=== PATIENT | male | born 1990 | race Caucasian/White ===

== ENCOUNTER 2020-03-08 21:00 | Inpatient (IN) | payer MEDICAID, OTHER ==
[~2020-03-08] VITALS: Ht 170.2 cm; Wt 74.4 kg
[2020-03-08 21:07] VITALS: BP 153/87
--- NOTE | 2020-03-08 21:14 | NUR ---
PT TAKEN TO BED 4
[2020-03-08] MEDS ORDERED: NACL 0.9% 500 ML IV ONE (21:22)
--- NOTE | 2020-03-08 21:23 | NUR ---
Dr. Cash examining patient.
[2020-03-08] MEDS ORDERED: KETOROLAC 30 MG/ML VIAL IVP ONE (21:25)
[2020-03-08] MEDS ORDERED: ONDANSETRON 4 MG/2 ML VIAL IVP ONE (21:25)
--- NOTE | 2020-03-08 21:31 | NUR ---
29 Y/O MALE C/O EPIGASTRIC PAIN X 1 WEEK. 8/10 PRESSURE LIKE PAIN. + VOMIT AND + DIARRHEA X 1 WEEK . ACTIVE BWOEL SOUNDS, SOFT, NON TNEDER. PMH: DENIES AX: PCN
[2020-03-08 21:41] LABS: BASOPHILS % (AUTO) 0.4 % (0.0-2.0); EOSINOPHILS # (AUTO) 0.3 K/uL (0-0.4); EOSINOPHILS % (AUTO) 2.5 % (0.0-4.0); HEMATOCRIT 48.1 % (36-52); HEMOGLOBIN 16.7 g/dL (12.0-18.0); LYMPHOCYTES # (AUTO) 1.9 K/uL (2.0-11.5); MEAN CORPUSCULAR HEMOGLOBIN 30 pg (27-31); MEAN CORPUSCULAR HGB CONC 35 g/dL (33-37); MONOCYTES # (AUTO) 1.4 K/uL (0.8-1.0); MONOCYTES % (AUTO) 12.6 % (1.7-9.3); NEUTROPHILS # (AUTO) 7.2 K/uL (1.8-7.7); NEUTROPHILS % (AUTO) 66.5 % (42.2-75.2); PLATELET COUNT (AUTO) 314 K/uL (140-450); RED BLOOD CELL COUNT(AUTO) 5.65 MIL/uL (4.20-6.10); RED CELL DISTRIBUTION WIDTH 13.1 % (11.6-13.7); WHITE BLOOD COUNT (AUTO) 10.9 K/uL (4.8-10.8)
--- NOTE | 2020-03-08 21:48 | NUR ---
PT TAKEN TO CT
[2020-03-08 21:54] LABS: ALBUMIN 4.1 g/dL (3.4-5.0); ANION GAP 13.2 (8-16); CARBON DIOXIDE 29.7 mmol/L (21-32); CREATININE 1.1 mg/dL (0.6-1.3); TOTAL BILIRUBIN 2.6 mg/dL (0.0-1.0)
[2020-03-08 22:01] LABS: POTASSIUM 2.9 mmol/L (3.5-5.1)
[2020-03-08] MEDS ORDERED: POTASSIUM CHL 40 MEQ/ D5-1/2NS 1,000 ML IV ONE (22:05)
[2020-03-08 22:11] LABS: APPEARANCE,URINE SL CLOUDY (CLEAR); BILIRUBIN,URINE 2+ (NEGATIVE); BLOOD, URINE NEGATIVE (NEGATIVE); COLOR,URINE ORANGE (YELLOW); LEUKOCYTE ESTERASE ,URINE NEGATIVE (NEGATIVE); NITRITE, URINE POSITIVE (NEGATIVE); PH,URINE 6.5 (5.0-9.0); UGLUCOSE NEGATIVE (NEGATIVE)
[2020-03-08 22:33] LABS: RBC,URINE 0-5 /HPF (0-5); WBC,URINE 0-5 /HPF (0-5)
[2020-03-08] MEDS ORDERED: ONDANSETRON 4 MG/2 ML VIAL IVP PRN (22:45)
[2020-03-08] MEDS ORDERED: ATRO1TAB PO (22:56)
[2020-03-08] MEDS ORDERED: PROM25TA27 PO (22:56)
[2020-03-08] MEDS ORDERED: METO5TAB4 PO (22:56)
[2020-03-08] MEDS ORDERED: NACL 0.9% 1,000 ML IV SCH (23:00)
[2020-03-08 23:10] VITALS: BP 135/76
--- NOTE | 2020-03-08 23:10 | NUR ---
RECEIVED PT AAOX4 FROM ER / COMPA , WALKS TO BED - STEADY GAIT , NID - O2 SAT WNL . IV SITE INTACT AND PATENT , W/ BEARABLE PAIN HESAID AT THIS TIME - TORADOL GIVEN AT ER PRIOR TO FLOOR . SAFETY MEASURES IN PLACE . ADM . ASSESSMENT DONE . MRAS SPECIMEN SENT TO LAB . PLAN OD CARE DISCUSSED AND VERBALIZE UNDERSTANDING . CALL LIGHT WITHIN REACH . WILL CONT. TO MONITOR . LOW SERUM K + - IVF W/ KCL - ON GOING RUN ORDERED .
--- NOTE | 2020-03-08 23:15 | NUR ---
Patient will be admitted to care of IRON JOE. Admited to TELE. Will go to room 112 B. Belongings list completed. Report to GEORGINA ERWIN.
[2020-03-09] VITALS: BP 125/67
--- NOTE | 2020-03-09 | NUR ---
MADE ROUNDS , RESTING ON BED COMFORTABLY , NO S/SX OF ACUTE DISTRESS NOTED AT THIS TIME . CALL LIGHT WITHIN REACH .
--- NOTE | 2020-03-09 02:00 | NUR ---
SLEEPING . CALL LIGHT WITHIN REACH .
[2020-03-09 04:00] VITALS: BP 110/60
--- NOTE | 2020-03-09 04:00 | NUR ---
MADE ROUNDS , NO S/SX OF ACUTE DISTRESS NOTED AT THIS TIME , NO COMPLAIN OF NAUSEA AND VOMITING , ABDL . PAIN AT THIS TIME . CALL LIGHT WITHIH REACH .
--- NOTE | 2020-03-09 06:00 | NUR ---
MADE ROUNDS , NO COMPLAIN MADE . LAST VOIDED 2144 AT THE ER - BP 120 /70 [facility] .
--- NOTE | 2020-03-09 07:20 | NUR ---
SHIFT REPORT RECEIVED FROM CONTROL CLERK FOOD AND BEVERAGE NURSE. PT IS WAKE AND AMBULATED TO REST ROOM. IN IN PLACE. NO DISTRESS. PT COMPLAINS OF ABDOMINAL PAIN. PAIN TOLERABLE. CALL LIGHT IN REACH. WILL CONTINUE TO MONITOR.
--- NOTE | 2020-03-09 07:20 | NUR ---
ENDORSED TO AM SHIFT - PT - STABLE .
[2020-03-09 08:00] VITALS: BP 140/84
[2020-03-09] MEDS ORDERED: POTASSIUM CHLORIDE 40 MEQ, LIDOCAINE MPF 1% 25 MG in NACL 0.9% 250 ML IV PRN (08:00)
[2020-03-09] MEDS ORDERED: DOCUSATE SODIUM 100 MG GELCAP PO PRN (08:00)
[2020-03-09] MEDS ORDERED: ONDANSETRON 4 MG/2 ML VIAL IM/IVP PRN (08:00)
[2020-03-09] MEDS ORDERED: ZOLPIDEM 5 MG TAB PO PRN (08:00)
[2020-03-09] MEDS ORDERED: ACETAMINOPHEN 325 MG TAB PO PRN (08:00)
[2020-03-09] MEDS ORDERED: guaiFENesin DM 200/20 MG-10 ML 10 ML UDC PO PRN (08:00)
[2020-03-09] MEDS: NACL 0.9% 1,000 ML IV SCH ×3 (08:00→22:38)
[2020-03-09] MEDS ORDERED: HYDROcodone/APAP 7.5/325 MG 1 TAB PO PRN (08:00)
[2020-03-09] MEDS: PANTOPRAZOLE 40 MG TABEC PO SCH ×2 (08:23→21:18)
[2020-03-09] MEDS: DICYCLOMINE 10 MG CAP PO SCH ×4 (08:24→21:18)
--- NOTE | 2020-03-09 09:17 | NUR ---
PATIENT HAS BEEN SCREENED AND CATEGORIZED HIGH NUTRITION RISK. PATIENT WILL BE SEEN WITHIN 1-2 DAYS OF ADMISSION. 03/09/20-03/10/[address]
--- NOTE | 2020-03-09 09:30 | NUR ---
PT GIVEN MORNING MEDS. ORAL PAIN MEDS GIVEN FOR ABD PAIN. NO COMPLAINS OF NAUSEA. IV IN PLACE. CALL LIGHT IN REACH. WILL CONTINUE TO MONITOR.
[2020-03-09 10:31] LABS: BASOPHILS % (AUTO) 0.2 % (0.0-2.0); EOSINOPHILS # (AUTO) 0.2 K/uL (0-0.4); EOSINOPHILS % (AUTO) 1.9 % (0.0-4.0); HEMATOCRIT 41.9 % (36-52); HEMOGLOBIN 14.3 g/dL (12.0-18.0); LYMPHOCYTES # (AUTO) 1.2 K/uL (2.0-11.5); LYMPHOCYTES % (AUTO) 11.7 % (20.5-51.1); MEAN CORPUSCULAR HEMOGLOBIN 29 pg (27-31); MEAN CORPUSCULAR HGB CONC 34 g/dL (33-37); MEAN CORPUSCULAR VOLUME 85.8 fL (80-94); MONOCYTES # (AUTO) 0.9 K/uL (0.8-1.0); MONOCYTES % (AUTO) 8.3 % (1.7-9.3); NEUTROPHILS # (AUTO) 8.1 K/uL (1.8-7.7); NEUTROPHILS % (AUTO) 77.9 % (42.2-75.2); PLATELET COUNT (AUTO) 246 K/uL (140-450); RED BLOOD CELL COUNT(AUTO) 4.88 MIL/uL (4.20-6.10); WHITE BLOOD COUNT (AUTO) 10.4 K/uL (4.8-10.8)
--- NOTE | 2020-03-09 10:42 | NUR ---
ACID WASHER OPERATOR NOTE: Patient's Orientation Person Situation Place Time Information Provided By PATIENT Comments SW CONTACTED PATIENT THROUGH ROOM PHONE. PATIENT PROVIDED PHONE NUMBER FOR EMERGENCY CONTACT WHEN SW VERIFIED DEMOGRAPHICS. Investigative Shopper, Realtionship and Phone Number MARCIAL SANCHEZ DAUGHTER [phone] [facility] Power of Hide Sorter No Does Patient Have a POLST No Identifying Problems No Social Work Triggers Is A Social Work Consult Needed No Mandate Report Filed No Explanation Of Identifying Problems PATIENT IS A 29-YEAR-OLD MALE ADMITTED FOR HYPOKALEMIA AND GASTROENTERITIS. PATIENT HAS NO PERTINENT PMHX. Admitted From Home Pre-Admission Level Of Functioning Status Independent/Ambulatory Prior Resources/Services Used In Last 12 Months No Prior Resources Used Prior DME No Prior DME Used Living Situation Lives With Family House Patient Had Caregiver No Home Support No Caregiver Issues Financial Issues No Known Financial Issue Referral To The Financial Counselor Needed No Factors/Needs No D/C Needs Identified Pt/Rep Participated In Discharge Plan Yes Patient/Family Agress With Discharge Plan Yes Discharge Plan Comments TENTATIVE DISCHARGE PLAN IS FOR PATIENT TO RETURN HOME. DC Plan Status Initiated
[2020-03-09 10:56] LABS: PROTHROMBIN TIME 11.4 secs (10.8-13.4)
[2020-03-09 10:59] LABS: ALBUMIN 3.4 g/dL (3.4-5.0); ANION GAP 9.8 (8-16); CARBON DIOXIDE 29.6 mmol/L (21-32); CREATININE 0.9 mg/dL (0.6-1.3); POTASSIUM 3.4 mmol/L (3.5-5.1); TOTAL BILIRUBIN 2.6 mg/dL (0.0-1.0)
[2020-03-09 11:10] LABS: CHOL/HDL RATIO 6.4 (1-4.5); FREE T4 (FREE THYROXINE) 1.86 ng/dL (0.76-1.46); MAGNESIUM 2.1 mg/dL (1.8-2.4); THYROID STIMULATING HORMONE 1.29 uIU/mL (0.34-3.74)
--- NOTE | 2020-03-09 11:30 | NUR ---
NO COMPLAINS OF ABDOMINAL PAIN. PT IS AWAKE AND RESPONSIVE. PT AMBULATED TO RESTROOM. WILL CONTINUE TO MONITOR.
[2020-03-09 12:00] VITALS: BP 122/62
--- NOTE | 2020-03-09 13:00 | NUR ---
PT HAD A BANANA FOR LUNCH. NO DISTRESS NOTED IV NS INFUSING. WILL CONTINUE TO MONITOR. CALL LIGHT IN REACH.
--- NOTE | 2020-03-09 14:16 | NUR ---
DC PLANNIN YRS OLD MALE PATIENT WAS ADMITTED FROM HOME WITH A DX OF HYPOKALEMIA, GASTROENTERITIS, INTRACTABLE VOMITING. PT HAS NO MEDICAL HISTORY. CXR SHOWED NO EVIDENCE OF ACUTE CARDIOPULMONARY DISEASE. CT ABD/PELVIS SHOWED NO BOWEL OBSTRUCTION. ADMINISTERED IVF AND PAIN MEDICATION. CONTINUE HOME MEDICATION. DC PLAN TO GO HOME WHEN STABLE. CM TO FOLLOW
--- NOTE | 2020-03-09 15:11 | NUR ---
PT IS AWAKE AND LYING IN BED. PT SAYS HE IS TIRED. NO DISTRESS OR SOB NOTED. NO COMPLAINS OF PAIN. WILL CONTINUE TO MONITOR.
--- NOTE | 2020-03-09 15:16 | NUR ---
03/09/20 RD INITIAL ASSESSMENT COMPLETED PLEASE REFER TO NUTRITION ASSESSMENT UNDER CARE ACTIVITY FOR ESTIMATED NUTRITIONAL NEEDS. 1. CONTINUE BRAT DIET TOLERATED 2. RECOMMEND ENSURE TID 3. ENCOURAGED INCREASING PO INTAKE 4. RD TO FOLLOW-UP 2-3 DAYS, HIGH RISK SD SUÁREZ, [facility]
[2020-03-09 16:00] VITALS: BP 122/63
--- NOTE | 2020-03-09 17:47 | NUR ---
PT IS AWAKE IN BED WATCHING TV. NO DISTRESS NO COMPLAINS OF PAIN. WILL CONTINUE TO MONITOR.
--- NOTE | 2020-03-09 19:13 | NUR ---
SHIFT REPORT GIVEN TO RETAIL TRAINING MANAGER NURSE. PT IS STABLE.
--- NOTE | 2020-03-09 19:14 | NUR ---
RECEIVED BEDSIDE ENDORSEMENT FROM RIP DAVIS. PATIENT IS LYING IN BED, AOX4, ON RA, RESPIRATION EVEN AND UNLABORED, DENIES PAIN, WITH IVF INFUSING AT HIS LAC 20 G, INTACT AND PATENT, AMBULATORY, PLAN OF CARE DISCUSSED, SAFETY MEASURES IN PLACE, CALL LIGHT WITHIN REACH.
[2020-03-09 20:00] VITALS: BP 130/63
[2020-03-09 20:45] LABS: BARBITURATE, URINE NEGATIVE ng/ml (NEG <=200); BENZODIAZEPINE, URINE NEGATIVE ng/mL (NEG <=200); CANNABINOID, URINE POSITIVE ng/mL (NEG <=50); COCAINE, URINE NEGATIVE ng/mL (NEG <=300); OPIATE, URINE NEGATIVE ng/mL (NEG <=2000); PHENCYCLIDINE SCREEN,URINE NEGATIVE ng/mL (NEG <=25)
--- NOTE | 2020-03-09 21:20 | NUR ---
DUE MEDS GIVEN ORDERED, TOLERATED WELL.
--- NOTE | 2020-03-09 22:38 | NUR ---
IVF FINISHED. HANGED A NEW BAG OF NS.
[2020-03-10] VITALS: BP 132/68
--- NOTE | 2020-03-10 01:00 | NUR ---
ASLEEP, RESPIRATION EVEN AND UNLABORED.
[2020-03-10 04:00] VITALS: BP 126/64
[2020-03-10] MEDS: NACL 0.9% 1,000 ML IV SCH (06:29)
--- NOTE | 2020-03-10 06:29 | NUR ---
PATIENT IS NOT IN ANY DISTRESS, DENIES PAIN. IVF FINISHED, CHANGED TO A NEW BAG OF NS 1 L AT 125 CC/HR.
[2020-03-10 06:41] LABS: BASOPHILS % (AUTO) 0.4 % (0.0-2.0); EOSINOPHILS # (AUTO) 0.2 K/uL (0-0.4); EOSINOPHILS % (AUTO) 2.9 % (0.0-4.0); HEMATOCRIT 41.2 % (36-52); HEMOGLOBIN 14.1 g/dL (12.0-18.0); LYMPHOCYTES # (AUTO) 1.3 K/uL (2.0-11.5); LYMPHOCYTES % (AUTO) 17.3 % (20.5-51.1); MEAN CORPUSCULAR HEMOGLOBIN 29 pg (27-31); MEAN CORPUSCULAR HGB CONC 34 g/dL (33-37); MEAN CORPUSCULAR VOLUME 85.8 fL (80-94); MONOCYTES # (AUTO) 0.8 K/uL (0.8-1.0); MONOCYTES % (AUTO) 10.5 % (1.7-9.3); NEUTROPHILS % (AUTO) 68.9 % (42.2-75.2); PLATELET COUNT (AUTO) 236 K/uL (140-450); RED CELL DISTRIBUTION WIDTH 12.7 % (11.6-13.7); WHITE BLOOD COUNT (AUTO) 7.3 K/uL (4.8-10.8)
[2020-03-10 06:44] LABS: ANION GAP 14.7 (8-16); CARBON DIOXIDE 23.1 mmol/L (21-32); CREATININE 0.8 mg/dL (0.6-1.3); POTASSIUM 3.8 mmol/L (3.5-5.1)
--- NOTE | 2020-03-10 07:10 | NUR ---
PATIENT IS IN STABLE CONDITION. BEDSIDE ENDORSEMENT GIVEN TO RIP BUTLER FOR CONTINUITY OF CARE.
--- NOTE | 2020-03-10 07:15 | NUR ---
RECEIVED PATIENT FROM NIGHT NURSE. PATIENT IS AWAKE, ALERT, ORIENTED X4. DENIES OF PAIN OR N/V AT THIS TIME. RESP EVEN AND UNLABORED ON ROOM AIR. SKIN IS WARM TO TOUCH. ABLE TO MAKE NEEDS KNOWN. PLAN OF CARE DISCUSSED WITH PATIENT, PATIENT VERBALIZED UNDERSTANDING. PATIENT IS ON A BANANA, RICE, TOAST, AND APPLESAUCE DIET FOR PERSISTENT VOMITING. PATIENT VOMITED ONCE DURING COMMISSION BROKER. SAFETY MEASURES IN PLACE. WILL CONTINUE TO MONITOR.
[2020-03-10 08:00] VITALS: BP 134/73
[2020-03-10] MEDS: DICYCLOMINE 10 MG CAP PO SCH (09:05)
[2020-03-10] MEDS: PANTOPRAZOLE 40 MG TABEC PO SCH (09:06)
--- NOTE | 2020-03-10 09:10 | NUR ---
MORNING ROUTINE MEDICATIONS GIVEN ORDERED. RESP EVEN AND UNLABORED ON ROOM AIR. DENIES OF PAIN OR EPISODES OF N/V AT THIS TIME. PATIENT IS COMFORTABLE IN BED. LAC WITH NS 125ML/HR PATENT AND INTACT. CALL LIGHT WITHIN REACH. WILL CONTINUE TO MONITOR.
[2020-03-10] MEDS ORDERED: PANT40EC28 PO (09:37)
--- NOTE | 2020-03-10 10:30 | NUR ---
PATIENT IS RESTING COMFORTABLY IN BED. RESP EVEN AND UNLABORED ON ROOM AIR. DENIES OF PAIN OR DISTRESS. RECEIVED DISCHARGE ORDER FROM DR BLOOM. PATIENT MADE AWARE.
[2020-03-10 12:00] VITALS: BP 132/76
[2020-03-10 12:07] VITALS: BP 132/76
--- NOTE | 2020-03-10 12:50 | NUR ---
PATIENT LEFT WITH FAMILY VIA PRIVATE VEHICLE. PATIENT LEFT IN STABLE CONDITION. DISCHARGE INSTRUCTIONS GIVEN, PATIENT VERBALIZED UNDERSTANDING.
== END 2020-03-10 13:00 | disposition home or self-care (01) | DRG 422 ==
LOC: MED 21:00 → MTU 22:48
PROVIDERS: ADMIT Family Medicine; ATTEND Family Medicine
DX: E87.6 Hypokalemia (principal); K52.9 Noninfective gastroenteritis and colitis, unspecified; E86.0 Dehydration; R74.0 Nonspecific elevation of levels of transaminase and lactic acid dehydrogenase [LDH]; E78.2 Mixed hyperlipidemia; F12.90 Cannabis use, unspecified, uncomplicated; E80.4 Gilbert syndrome; Z88.0 Allergy status to penicillin
CPT/HCPCS: 36415; 71045; 80048; 80053; 80305; 81001; 82150; 83036; 83690; 83735; 83880; 84100; 84436; 84439; 84443; 84479; 84484; 85025; 85610; 85730; 87081; 93005; 96374; 99285; J1885; J2001; J2405; J3480; J7030; Q0092